=== PATIENT | male | born 1960 | race African-American/Black ===

== ENCOUNTER 2020-02-20 12:23 | Inpatient (IN) | payer MEDICARE, MEDICAID ==
[~2020-02-20] VITALS: Ht 170.2 cm; Wt 71.7 kg
[2020-02-20 14:15] LABS: BASOPHILS % 0.5 % (0.0-2.0); EOSINOPHILS % 0.6 % (0.0-5.0); HEMATOCRIT. 36.8 % (42.0-52.0); LYMPHOCYTES % 18.2 % (20.0-50.0); MEAN CORPUSCULAR VOLUME 99.1 fL (80.0-94.0); MEAN PLATELET VOLUME 7.5 fl (7.4-10.4); MONOCYTES % 10.1 % (2.0-8.0); NEUTROPHILS % 70.6 % (40.0-76.0); PLATELET 119 x1000/uL (130-400); RED BLOOD CELL COUNT 3.72 mill/uL (4.7-6.1); RED CELL DISTRIBUTION WIDTH 14.2 % (11.6-14.6)
[2020-02-20 14:19] LABS: CHLORIDE 104 mEq/L (98-107)
[2020-02-20] MEDS ORDERED: AMPICILLIN SOD/SULBACTAM NA 3 G in SODIUM CHLORIDE 0.9% 100 ML IV SCH (14:45)
[2020-02-20] MEDS ORDERED: PIPERACILLIN/TAZ 3.375G PREMIX 50 ML IV SCH (17:00)
[2020-02-20] MEDS ORDERED: MORPHINE SULFATE 2 MG/ML CPJ (NOT FOR IM USE) IV PRN (17:00)
[2020-02-20] MEDS ORDERED: CLONIDINE 0.1MG TABLET PO PRN (17:00)
[2020-02-20] MEDS ORDERED: ONDANSETRON HCL 4MG/2ML INJ IV PRN (17:00)
[2020-02-20 18:29] VITALS: BP 142/76
[2020-02-20 20:00] VITALS: BP 120/53
[2020-02-20] MEDS: PIPERACILLIN/TAZOBACTAM 3.375 G in DEXT 5% WATER 100 ML IV SCH (20:48)
[2020-02-20] MEDS: VANCOMYCIN 1500MG in DEXTROSE 5% WATER 250ML IV SCH (20:48)
[2020-02-20] MEDS: ACETAMINOPHEN 325MG TABLET PO PRN (20:49)
[2020-02-21] VITALS: BP 155/76
[2020-02-21 04:00] VITALS: BP 142/82
[2020-02-21] MEDS: PIPERACILLIN/TAZOBACTAM 3.375 G in DEXT 5% WATER 100 ML IV SCH ×4 (04:11→17:56)
[2020-02-21] MEDS: ACETAMINOPHEN 325MG TABLET PO PRN (04:12)
[2020-02-21 05:57] LABS: CHLORIDE 102 mEq/L (98-107)
[2020-02-21 06:03] LABS: LDL CHOLESTEROL 89 mg/dL (5-100)
[2020-02-21 06:04] LABS: BASOPHILS % 0.3 % (0.0-2.0); EOSINOPHILS % 0.7 % (0.0-5.0); HEMATOCRIT. 34.3 % (42.0-52.0); HEMOGLOBIN. 12.2 g/dL (14.0-18.0); LYMPHOCYTES % 8.9 % (20.0-50.0); MEAN CORPUSCULAR HEMOGLOBIN 34.7 pg (28.0-32.0); MEAN CORPUSCULAR VOLUME 97.6 fL (80.0-94.0); MONOCYTES % 10.2 % (2.0-8.0); NEUTROPHILS % 79.9 % (40.0-76.0); PLATELET 113 x1000/uL (130-400); RED BLOOD CELL COUNT 3.52 mill/uL (4.7-6.1); RED CELL DISTRIBUTION WIDTH 14.2 % (11.6-14.6)
[2020-02-21 06:05] LABS: HDL CHOLESTEROL 35 mg/dL (40-59)
[2020-02-21 08:00] VITALS: BP 127/67
[2020-02-21] MEDS: VANCOMYCIN 1500MG in DEXTROSE 5% WATER 250ML IV SCH ×2 (08:54→21:52)
[2020-02-21 12:00] VITALS: BP 133/73
[2020-02-21] MEDS: NIFEDIPINE XL 60MG TAB PO SCH (13:00)
[2020-02-21] MEDS ORDERED: POTASSIUM CHLORIDE INJ 40 MEQ in DEXT 5% WATER 250 ML IV SCH (13:00)
[2020-02-21 16:00] VITALS: BP 150/74
[2020-02-21 20:00] VITALS: BP 123/63
[2020-02-21] MEDS: QUETIAPINE FUMARATE 50MG TABLET PO SCH (20:56)
[2020-02-21] MEDS: LEVETIRACETAM 500MG/5ML CUP PO SCH (20:56)
[2020-02-22] VITALS: BP 126/62
[2020-02-22] MEDS: PIPERACILLIN/TAZOBACTAM 3.375 G in DEXT 5% WATER 100 ML IV SCH ×3 (00:48→12:40)
[2020-02-22 04:00] VITALS: BP 113/66
[2020-02-22 07:38] LABS: HEMATOCRIT. 34.4 % (42.0-52.0); HEMOGLOBIN. 12.2 g/dL (14.0-18.0); MEAN CORPUSCULAR HEMOGLOBIN 35.1 pg (28.0-32.0); MEAN CORPUSCULAR VOLUME 98.7 fL (80.0-94.0); MEAN PLATELET VOLUME 8.3 fl (7.4-10.4); PLATELET 119 x1000/uL (130-400); RED BLOOD CELL COUNT 3.48 mill/uL (4.7-6.1); RED CELL DISTRIBUTION WIDTH 14.5 % (11.6-14.6)
[2020-02-22 08:00] VITALS: BP 120/60
[2020-02-22 08:00] LABS: CHLORIDE 103 mEq/L (98-107)
[2020-02-22] MEDS: VANCOMYCIN 1500MG in DEXTROSE 5% WATER 250ML IV SCH (08:49)
[2020-02-22] MEDS: NIFEDIPINE XL 60MG TAB PO SCH (08:49)
[2020-02-22] MEDS: PAROXETINE HCL 10MG TABLET PO SCH (08:49)
[2020-02-22] MEDS: LEVETIRACETAM 500MG/5ML CUP PO SCH ×2 (08:49→20:09)
[2020-02-22] MEDS ORDERED: POTASSIUM CHLORIDE 20MEQ TABLET SR PO NR (09:00)
[2020-02-22 12:00] VITALS: BP 120/69
[2020-02-22 15:10] LABS: PLATELET ESTIMATE SLIGHTLY DECREASED
[2020-02-22] MEDS: CHLORDIAZEPOXIDE 25MG CAPSULE PO SCH ×2 (15:18→21:12)
[2020-02-22 16:00] VITALS: BP 123/64
[2020-02-22 20:00] VITALS: BP 114/66
[2020-02-22] MEDS: QUETIAPINE FUMARATE 50MG TABLET PO SCH (20:09)
[2020-02-23] VITALS: BP 107/66
[2020-02-23 04:00] VITALS: BP 119/72
[2020-02-23] MEDS: CHLORDIAZEPOXIDE 25MG CAPSULE PO SCH ×3 (05:09→22:36)
[2020-02-23 08:00] VITALS: BP 118/73
[2020-02-23 08:14] LABS: HEMATOCRIT. 34.4 % (42.0-52.0); HEMOGLOBIN. 12.3 g/dL (14.0-18.0); MEAN CORPUSCULAR HEMOGLOBIN 35.2 pg (28.0-32.0); MEAN PLATELET VOLUME 8.2 fl (7.4-10.4); PLATELET 138 x1000/uL (130-400); RED BLOOD CELL COUNT 3.48 mill/uL (4.7-6.1); RED CELL DISTRIBUTION WIDTH 14.4 % (11.6-14.6)
[2020-02-23 08:30] LABS: CHLORIDE 108 mEq/L (98-107)
[2020-02-23] MEDS: LEVETIRACETAM 500MG/5ML CUP PO SCH ×2 (09:46→22:35)
[2020-02-23] MEDS: PAROXETINE HCL 10MG TABLET PO SCH (09:46)
[2020-02-23] MEDS: NIFEDIPINE XL 60MG TAB PO SCH (09:46)
[2020-02-23 12:00] VITALS: BP 111/62
[2020-02-23] MEDS ORDERED: VANCOMYCIN 1250MG in DEXTROSE 5% WATER 250ML IV SCH (13:00)
[2020-02-23 13:44] LABS: PLATELET ESTIMATE NORMAL
[2020-02-23] MEDS: NICOTINE 14MG PATCH TD SCH (14:47)
[2020-02-23 16:00] VITALS: BP 121/71
[2020-02-23 20:00] VITALS: BP 118/53
[2020-02-23] MEDS: QUETIAPINE FUMARATE 50MG TABLET PO SCH (22:36)
[2020-02-24] VITALS: BP 125/61
[2020-02-24 02:00] VITALS: BP 145/82
[2020-02-24] MEDS: VANCOMYCIN 1250MG in DEXTROSE 5% WATER 250ML IV SCH (05:50)
[2020-02-24] MEDS: CHLORDIAZEPOXIDE 25MG CAPSULE PO SCH ×3 (06:41→21:58)
[2020-02-24 07:32] LABS: HEMATOCRIT. 35.7 % (42.0-52.0); HEMOGLOBIN. 12.4 g/dL (14.0-18.0); MEAN CORPUSCULAR HEMOGLOBIN 34.5 pg (28.0-32.0); MEAN CORPUSCULAR VOLUME 99.3 fL (80.0-94.0); PLATELET 152 x1000/uL (130-400); RED BLOOD CELL COUNT 3.59 mill/uL (4.7-6.1); RED CELL DISTRIBUTION WIDTH 14.2 % (11.6-14.6)
[2020-02-24 07:40] LABS: CHLORIDE 106 mEq/L (98-107)
[2020-02-24 08:00] VITALS: BP 125/74
[2020-02-24] MEDS: LEVETIRACETAM 500MG/5ML CUP PO SCH ×2 (09:13→21:57)
[2020-02-24] MEDS: PAROXETINE HCL 10MG TABLET PO SCH (09:13)
[2020-02-24] MEDS: NICOTINE 14MG PATCH TD SCH (09:13)
[2020-02-24] MEDS: NIFEDIPINE XL 60MG TAB PO SCH (09:14)
[2020-02-24 12:00] VITALS: BP 114/61
[2020-02-24 14:28] LABS: PLATELET ESTIMATE NORMAL
[2020-02-24 16:00] VITALS: BP 110/58
[2020-02-24 20:00] VITALS: BP 126/71
[2020-02-24] MEDS: QUETIAPINE FUMARATE 50MG TABLET PO SCH (21:58)
[2020-02-25] VITALS: BP 105/58
[2020-02-25] MEDS: VANCOMYCIN 1250MG in DEXTROSE 5% WATER 250ML IV SCH (00:19)
[2020-02-25 04:00] VITALS: BP 120/71
[2020-02-25] MEDS: CHLORDIAZEPOXIDE 25MG CAPSULE PO SCH ×3 (05:49→22:13)
[2020-02-25 08:00] VITALS: BP 109/57
[2020-02-25 08:00] LABS: CHLORIDE 107 mEq/L (98-107)
[2020-02-25 08:06] LABS: HEMATOCRIT 33.8 % (42.0-52.0); HEMOGLOBIN 11.9 g/dL (14.0-18.0); MEAN CORPUSCULAR HEMOGLOBIN 34.9 pg (28.0-32.0); MEAN CORPUSCULAR VOLUME 99.2 fL (80.0-94.0); PLATELET 155 x1000/uL (130-400); RED BLOOD CELL COUNT 3.41 mill/uL (4.7-6.1); RED CELL DISTRIBUTION WIDTH 14.6 % (11.6-14.6)
[2020-02-25] MEDS: PAROXETINE HCL 10MG TABLET PO SCH (08:18)
[2020-02-25] MEDS: LEVETIRACETAM 500MG/5ML CUP PO SCH ×2 (08:19→22:13)
[2020-02-25] MEDS: NICOTINE 14MG PATCH TD SCH (08:19)
[2020-02-25] MEDS: NIFEDIPINE XL 60MG TAB PO SCH (08:23)
[2020-02-25 12:00] VITALS: BP 122/69
[2020-02-25 15:49] VITALS: BP 115/61
[2020-02-25 20:00] VITALS: BP 128/71
[2020-02-25] MEDS: QUETIAPINE FUMARATE 50MG TABLET PO SCH (22:13)
[2020-02-26] VITALS: BP 118/64
[2020-02-26 04:00] VITALS: BP 133/74
[2020-02-26] MEDS: CHLORDIAZEPOXIDE 25MG CAPSULE PO SCH ×3 (06:12→22:05)
[2020-02-26 08:00] VITALS: BP 126/77
[2020-02-26 08:17] LABS: HEMATOCRIT. 34.8 % (42.0-52.0); HEMOGLOBIN. 12.1 g/dL (14.0-18.0); MEAN CORPUSCULAR HEMOGLOBIN 34.5 pg (28.0-32.0); MEAN CORPUSCULAR VOLUME 98.7 fL (80.0-94.0); MEAN PLATELET VOLUME 7.6 fl (7.4-10.4); PLATELET 178 x1000/uL (130-400); RED BLOOD CELL COUNT 3.52 mill/uL (4.7-6.1); RED CELL DISTRIBUTION WIDTH 14.5 % (11.6-14.6)
[2020-02-26] MEDS: NICOTINE 14MG PATCH TD SCH (08:41)
[2020-02-26] MEDS: LEVETIRACETAM 500MG/5ML CUP PO SCH ×2 (08:41→21:00)
[2020-02-26] MEDS: PAROXETINE HCL 10MG TABLET PO SCH (08:42)
[2020-02-26] MEDS: NIFEDIPINE XL 60MG TAB PO SCH (08:42)
[2020-02-26 10:30] LABS: ATYPICAL LYMPHOCYTES 1; PLATELET ESTIMATE NORMAL
[2020-02-26 12:00] VITALS: BP 128/79
[2020-02-26 16:00] VITALS: BP 124/69
[2020-02-26 20:00] VITALS: BP 120/71
[2020-02-26] MEDS: QUETIAPINE FUMARATE 50MG TABLET PO SCH (22:05)
[2020-02-27] VITALS: BP 104/55
[2020-02-27 04:00] VITALS: BP 101/51
[2020-02-27] MEDS: CHLORDIAZEPOXIDE 25MG CAPSULE PO SCH ×2 (05:37→13:22)
[2020-02-27 08:00] VITALS: BP 129/59
[2020-02-27] MEDS: NIFEDIPINE XL 60MG TAB PO SCH (09:00)
[2020-02-27] MEDS: PAROXETINE HCL 10MG TABLET PO SCH (09:58)
[2020-02-27] MEDS: LEVETIRACETAM 500MG/5ML CUP PO SCH (09:58)
[2020-02-27] MEDS: NICOTINE 14MG PATCH TD SCH (10:23)
[2020-02-27 12:00] VITALS: BP 110/61
[2020-02-27 15:53] VITALS: BP 110/61
== END 2020-02-27 16:40 | disposition home or self-care (01) | DRG 872 ==
LOC: ER 12:23 → ENRESERV 15:57 → 6EST 16:27 → EDBEDREQ 16:30 → EDBEDREQTM 16:30
PROVIDERS: ADMIT Internal Medicine; ATTEND Internal Medicine
DX: A41.9 Sepsis, unspecified organism (principal); L03.115 Cellulitis of right lower limb; L97.919 Non-pressure chronic ulcer of unspecified part of right lower leg with unspecified severity; M86.9 Osteomyelitis, unspecified; I10 Essential (primary) hypertension; F32.9 Major depressive disorder, single episode, unspecified; F41.9 Anxiety disorder, unspecified; F10.10 Alcohol abuse, uncomplicated; R07.89 Other chest pain; F17.200 Nicotine dependence, unspecified, uncomplicated; Y90.9 Presence of alcohol in blood, level not specified; G40.909 Epilepsy, unspecified, not intractable, without status epilepticus; F29 Unspecified psychosis not due to a substance or known physiological condition; I87.8 Other specified disorders of veins; L85.3 Xerosis cutis; R26.89 Other abnormalities of gait and mobility; F41.8 Other specified anxiety disorders; J44.9 Chronic obstructive pulmonary disease, unspecified; Z59.0 Homelessness
CPT/HCPCS: 36415; 71045; 73590; 80048; 80053; 80061; 80202; 80320; 83605; 84443; 84484; 85025; 85027; 93005; 93306; 93970; 97161; 99285; J0295; J2270; J2543; J3370; J3480; J7050; J7060; G0480